=== PATIENT | female | born 1940 | race Caucasian/White ===

== ENCOUNTER 2017-01-21 12:57 | Emergency (ER) | payer MEDICARE ==
[~2017-01-21] VITALS: Ht 167.6 cm; Wt 68.0 kg
[2017-01-21] MEDS ORDERED: NORCO 10-325 T1 EACH PO (15:09)
== END 2017-01-21 18:06 | disposition home or self-care (01) ==
LOC: ED 12:57
DX: S22.42XA Multiple fractures of ribs, left side, initial encounter for closed fracture (principal); V29.9XXA Motorcycle rider (driver) (passenger) injured in unspecified traffic accident, initial encounter; Y93.89 Activity, other specified; Y92.413 State road as the place of occurrence of the external cause; Y99.9 Unspecified external cause status